=== PATIENT | female | born 1990 | race African-American/Black ===

== ENCOUNTER 2018-11-26 19:34 | Emergency (ER) | payer MEDICAID ==
[~2018-11-26] VITALS: Ht 167.6 cm; Wt 77.9 kg
[2018-11-26 19:39] VITALS: BP 126/83
[2018-11-26] MEDS ORDERED: PLEASE ENTER ALLERGIES MC SCH (20:30)
== END 2018-11-26 20:59 | disposition home or self-care (01) ==
LOC: ED 20:30
DX: L25.9 Unspecified contact dermatitis, unspecified cause (principal)
CPT/HCPCS: 99283; J7512

== ENCOUNTER 2019-02-01 10:18 | Emergency (ER) | payer MEDICAID ==
[~2019-02-01] VITALS: Ht 170.2 cm; Wt 78.3 kg
[2019-02-01] MEDS ORDERED: OXYcodone/APAP 5/325MG TABLET ONE (10:37)
--- NOTE | 2019-02-01 10:52 | NUR ---
ABDELRAHMAN WRAP APPLIED TO LEFT FOOT. PT ABLE TO DEMONSTRATE CRUTCH WALKING.
[2019-02-01] MEDS ORDERED: OXYcodone/APAP 5/325MG TABLET PO ONE (11:00)
[2019-02-01 11:24] VITALS: BP 140/88
== END 2019-02-01 11:26 | disposition home or self-care (01) ==
LOC: ED 11:22
DX: S93.492A Sprain of other ligament of left ankle, initial encounter (principal); F17.200 Nicotine dependence, unspecified, uncomplicated; X50.1XXA Overexertion from prolonged static or awkward postures, initial encounter; Y93.89 Activity, other specified; Y92.89 Other specified places as the place of occurrence of the external cause; Y99.8 Other external cause status
CPT/HCPCS: 99283

== ENCOUNTER 2020-12-03 15:30 | Emergency (ER) | payer MEDICAID ==
[~2020-12-03] VITALS: Ht 170.2 cm; Wt 78.3 kg
--- NOTE | 2020-12-03 16:00 | NUR ---
PATIENT WALKED BACK FROM TRIAGE WITH CHIEF C/O RIGHT LEG PAIN X4 DAYS. PATIENT WAS SENT BY URGENT CARE FOR ULTRASOUND OF RIGHT LEG. X-RAY OF LEG AT URGENT CARE NEGATIVE. PATIENT STATES SHE FELL ABOUT 1.5 WEEKS AGO AND HAS BEEN HAVING PAIN SINCE. PATIENT RECEIVED A SHOT OF TORADOL AT URGENT CARE, AND DOES NOT HAVE PAIN AT THIS TIME. NADN, CALL LIGHT WITHIN REACH.
[2020-12-03] MEDS ORDERED: KETOROLAC 30 MG/1 ML IM ONE (16:30)
[2020-12-03 17:41] VITALS: BP 131/93
[2020-12-03] MEDS ORDERED: KETOROLAC 30 MG/1 ML ONE (17:47)
--- NOTE | 2020-12-03 18:00 | NUR ---
Patient given discharge instructions and they have confirmed that they understand the instructions, all questions answered. Patient stable and ambulatory with steady gait from ED to private vehicle.
== END 2020-12-03 18:01 | disposition home or self-care (01) ==
LOC: ED 16:43
DX: S70.11XA Contusion of right thigh, initial encounter (principal); I48.91 Unspecified atrial fibrillation; Z88.8 Allergy status to other drugs, medicaments and biological substances; W01.0XXA Fall on same level from slipping, tripping and stumbling without subsequent striking against object, initial encounter; Y93.89 Activity, other specified; Y92.098 Other place in other non-institutional residence as the place of occurrence of the external cause; Y99.8 Other external cause status
CPT/HCPCS: 93971; 96372; 99284; J1885